=== PATIENT | male | born 1970 | race Caucasian/White ===

== ENCOUNTER 2022-08-29 19:05 | Inpatient (IN) | payer BC ==
[2022-08-29] MEDS ORDERED: SODIUM CHLORIDE 1,000 ML IV ONE (19:42)
[2022-08-29] MEDS ORDERED: HYDROmorphone HCL CARPU-JECT 1 MG/1 ML DISP.SYRIN IVPUSH ONE (19:42)
[2022-08-29] MEDS ORDERED: HYDROmorphone HCL/PF 1 MG/ML VIAL ONE (19:48)
[2022-08-29 20:13] LABS: HEMATOCRIT 40.6 % (35.4-49); HEMOGLOBIN 14.4 G/dL (11.7-16.9); MCH 30.5 pg (25.7-33.7); MCHC 35.4 g/dl (32.0-35.9); MEAN CELL VOLUME 86.2 fl (80-96); MEAN PLT VOLUME 7.9 fl (7.5-11.1); RBC 4.71 10^6/uL (4.00-5.60); WHITE BLOOD COUNT 11.8 10^3/uL (4.0-10.8)
[2022-08-29 20:17] LABS: INR 1.22 (0.83-1.09); PROTHROMBIN TIME (PATIENT) 14.1 SEC (9.7-13.0)
[2022-08-29 20:24] LABS: ALBUMIN 3.9 g/dl (3.4-5.0); BILIRUBIN,TOTAL 1.1 mg/dl (0.2-1); CALCIUM 8.7 mg/dl (8.5-10); CREATININE 0.8 mg/dl (0.55-1.3); TOT PROT 6.7 g/dl (6.4-8.2)
[2022-08-29] MEDS ORDERED: PIPERACILLIN/TAZOBACTAM 4.5 GM VIAL IVPB ONE (21:20)
[2022-08-29] MEDS ORDERED: PIPERACILLIN/TAZOB 4.5 GM 4.5 GM in DEXTROSE 5%-WATER 100 ML IVPB ONE (21:23)
[2022-08-29 23:44] VITALS: BMI 55.3
[2022-08-30] MEDS: HYDROmorphone HCl 2 MG/ML VIAL IVPB PRN ×5 (00:01→22:00)
[2022-08-30] MEDS: DEXTROSE 5%-NORMAL SALINE 1,000 ML IV SCH ×2 (00:03→23:58)
[2022-08-30] MEDS: PIPERACILLIN/TAZOB 4.5 GM 4.5 GM in DEXTROSE 5%-WATER 100 ML IVPB SCH ×6 (03:32→18:19)
[2022-08-30 08:31] LABS: ALBUMIN 3.3 g/dl (3.4-5.0); BILIRUBIN,TOTAL 1.3 mg/dl (0.2-1); CALCIUM 7.9 mg/dl (8.5-10); CREATININE 0.9 mg/dl (0.55-1.3); TOT PROT 5.8 g/dl (6.4-8.2)
[2022-08-30] MEDS: FAMOTIDINE 20 MG/50 ML IVPB 20 MG/50 ML MG IVPB SCH ×2 (09:50→21:27)
[2022-08-30 12:08] LABS: BASO % 0.3 % (0-2.0); EOS % 0.9 % (0-4.5); HEMATOCRIT 38.7 % (35.4-49); HEMOGLOBIN 12.8 GM/dL (11.7-16.9); LYMPH % 10.6 % (8-40); MCH 29.3 pg (25.7-33.7); MEAN CELL VOLUME 88.7 fl (80-96); MONO % 7.3 % (3.8-10.2); NEUT % 80.9 % (42.8-82.8); PLATELET COUNT 182 10^3/uL (134-434); RBC 4.36 M/mm3 (4.00-5.60); RDW 13.6 % (11.9-15.9); WHITE BLOOD COUNT 8.7 K/mm3 (4.0-10.0)
[2022-08-31] MEDS: HYDROmorphone HCl 2 MG/ML VIAL IVPB PRN (02:31)
[2022-08-31] MEDS: PIPERACILLIN/TAZOB 4.5 GM 4.5 GM in DEXTROSE 5%-WATER 100 ML IVPB SCH ×3 (02:50→17:05)
[2022-08-31] MEDS ORDERED: HYDROmorphone HCl 2 MG/ML VIAL IVPB PRN (08:17)
[2022-08-31 08:36] LABS: CALCIUM 8.1 mg/dl (8.5-10); CREATININE 0.8 mg/dl (0.55-1.3); TOT PROT 5.4 g/dl (6.4-8.2)
[2022-08-31] MEDS: ACETAMINOPHEN 1000 MG/100 ML BAG IVPB PRN ×2 (09:00→21:43)
[2022-08-31] MEDS: FAMOTIDINE 20 MG/50 ML IVPB 20 MG/50 ML MG IVPB SCH ×2 (09:04→21:09)
[2022-08-31 11:19] LABS: BASO % 0.2 % (0-2.0); EOS % 1.4 % (0-4.5); HEMATOCRIT 34.5 % (35.4-49); HEMOGLOBIN 11.5 GM/dL (11.7-16.9); LYMPH % 13.7 % (8-40); MCH 29.5 pg (25.7-33.7); MCHC 33.3 g/dl (32.0-35.9); MEAN CELL VOLUME 88.5 fl (80-96); MEAN PLT VOLUME 8.3 fl (7.5-11.1); MONO % 8.7 % (3.8-10.2); PLATELET COUNT 186 10^3/uL (134-434); RDW 13.5 % (11.9-15.9); WHITE BLOOD COUNT 7.5 K/mm3 (4.0-10.0)
[2022-08-31] MEDS: DEXTROSE 5%-NORMAL SALINE 1,000 ML IV SCH (23:00)
[2022-09-01] MEDS: PIPERACILLIN/TAZOB 4.5 GM 4.5 GM in DEXTROSE 5%-WATER 100 ML IVPB SCH ×2 (02:05→09:47)
[2022-09-01 09:16] LABS: BASO % 0.4 % (0-2.0); EOS % 2.9 % (0-4.5); HEMATOCRIT 37.8 % (35.4-49); LYMPH % 17.4 % (8-40); MCHC 34.3 g/dl (32.0-35.9); MEAN CELL VOLUME 87.4 fl (80-96); MEAN PLT VOLUME 8.2 fl (7.5-11.1); NEUT % 71.3 % (42.8-82.8); PLATELET COUNT 211 10^3/uL (134-434); RBC 4.32 M/mm3 (4.00-5.60); RDW 13.1 % (11.9-15.9); WHITE BLOOD COUNT 5.4 K/mm3 (4.0-10.0)
[2022-09-01 09:17] LABS: ALBUMIN 3.2 g/dl (3.4-5.0); CALCIUM 8.4 mg/dl (8.5-10); CREATININE 0.8 mg/dl (0.55-1.3); TOT PROT 6.1 g/dl (6.4-8.2)
[2022-09-01] MEDS: FAMOTIDINE 20 MG/50 ML IVPB 20 MG/50 ML MG IVPB SCH (09:47)
[2022-09-01 09:54] VITALS: RESP 18
[2022-09-01 14:29] VITALS: BP 132/78; PULSE 73; TEMP 98.4
== END 2022-09-01 15:46 | disposition home or self-care (01) | DRG 392 ==
LOC: FER 19:05 → FM/S 21:26
PROVIDERS: ADMIT Internal Medicine; ATTEND Internal Medicine
DX: K57.80 Diverticulitis of intestine, part unspecified, with perforation and abscess without bleeding (principal)
CPT/HCPCS: 0241U-QW; 36415; 71045-TC-FY; 74176-TC; 74177-TC; 80053; 81003; 81015; 85025; 85027; 85610; 87040; 93005; 99285-25; Q9967